=== PATIENT | male | born 1960 | race Caucasian/White ===

== ENCOUNTER 2017-03-19 09:00 | Inpatient (IN) | payer OTHER ==
[2017-03-19] VITALS (20 sets, daily range): BP systolic 117–166; BP diastolic 69–97; PULSE 63–80; RESP 16–22; Ht 172.7 cm; Wt 98.5 kg
[~2017-03-19] VITALS: Ht 172.7 cm; Wt 98.5 kg
[~2017-03-19 09:00] MED LIST: ALPR0.5T; LIDOCAINE 2% (SDV) 5 ML INJ ONE; ONDANSETRON 4 MG INJ ONE; ZOLP10TA
[2017-03-19] MEDS ORDERED: TRANEXAMIC ACID 1,000 MG in DEXTROSE 5% 100 ML IV ONE ×4 (12:00)
[2017-03-19] MEDS ORDERED: CELE100C PO (12:03)
[2017-03-19] MEDS ORDERED: ALPR2TAB PO (12:03)
[2017-03-19] MEDS ORDERED: ATOR10TA65 PO (12:03)
[2017-03-19] MEDS ORDERED: LISI10TA2 PO (12:04)
[2017-03-19] MEDS ORDERED: METF500T4 PO (12:05)
[2017-03-19] MEDS ORDERED: OXYM10TA PO (12:05)
[2017-03-19] MEDS ORDERED: ZOLP12.54 PO (12:06)
[2017-03-19] MEDS ORDERED: PANT40TA3 PO (12:06)
[2017-03-19] MEDS ORDERED: FENTANYL PATCH TRANSDERM (12:10)
[2017-03-19 13:26] LABS: INR 0.9; PROTIME 12.2 Sec (11.9-14.9)
[2017-03-19] MEDS ORDERED: ROPIVACAINE 0.2% 60 ML, CLONIDINE 100 MCG, EPINEPHrine 0.3 MG, KETOROLAC 30 MG, SOD CHL... INJ SCH ×5 (14:00)
[2017-03-19] MEDS ORDERED: MIDAZOLAM 1 MG/ML 2 ML INJ ONE (15:42)
[2017-03-19] MEDS ORDERED: BUPIVACAINE 0.5%/EPI (SDV) 30 ML INJ ONE (15:59)
[2017-03-19] MEDS ORDERED: POLYMYXIN/BACITRACIN 1L IRRIG ONE (15:59)
[2017-03-19] MEDS ORDERED: KETOROLAC 30 MG INJ ONE ×2 (15:59→18:40)
[2017-03-19] MEDS ORDERED: MEPERIDINE 25 MG INJ IV PRN (16:00)
[2017-03-19] MEDS ORDERED: MIDAZOLAM 1 MG/ML 2 ML INJ IV PRN (16:00)
[2017-03-19] MEDS ORDERED: HYDROmorphONE (0.2 MG/ML) 10ML SYG IV PRN ×2 (16:00)
[2017-03-19] MEDS ORDERED: DIPHENHYDRAMINE 50 MG INJ IV PRN (16:00)
[2017-03-19] MEDS ORDERED: LABETALOL HCL 20MG INJ IV PRN (16:00)
[2017-03-19] MEDS ORDERED: ONDANSETRON 4 MG INJ IV PRN (16:00)
[2017-03-19] MEDS ORDERED: METOCLOPRAMIDE 10 MG INJ IV PRN (16:00)
[2017-03-19] MEDS ORDERED: hydrALAzine 20 MG INJ IV PRN (16:00)
[2017-03-19] MEDS ORDERED: KETOROLAC 30 MG INJ IV PRN (16:00)
[2017-03-19] MEDS ORDERED: EPHEDrine SULFATE 50 MG/5 ML SYG IV PRN (16:00)
[2017-03-19] MEDS ORDERED: FENTAnyl 50 MCG/ML VIAL IV PRN ×3 (16:00)
--- NOTE | 2017-03-19 16:30 | HPN ---
Date/Time of Note Date/Time of Note DATE: 03/19/17 TIME: 16:30 Interval H&P Admission Note Pt. seen H&P reviewed: No system changes RUBY PATEL Mar 19, 2017 16:30
[2017-03-19] MEDS ORDERED: ROCURONIUM 50 MG INJ ONE (17:22)
[2017-03-19] MEDS ORDERED: PROPOFOL 20 ML ONE (17:22)
[2017-03-19] MEDS ORDERED: DEXAMETHASONE 4 MG/ML 1 ML INJ ONE (17:23)
--- NOTE | 2017-03-19 17:52 | RADRPT ---
PROCEDURE: Limited left knee series CLINICAL INDICATION: Pain, knee replacement TECHNIQUE: Single AP view of the left knee is submitted for review. COMPARISON: 09/02/2012 FINDINGS: Single AP view of the left knee is compared to the previous studies from 09/02/2012. There has been interval total knee arthroplasty. The prosthesis appears to be anatomically aligned and well seated. IMPRESSION: Interval total knee arthroplasty. RPTAT:AAJJ Physician Diana Date Time Electronically viewed and signed by Regis Parkinson Physician on 03/19/2017 17:52 SHAHANA/
--- NOTE | 2017-03-19 18:31 | SIPON ---
Date/Time of Note Date/Time of Note DATE: 03/19/17 TIME: 18:29 Operative Report Preoperative Diagnosis failed left UKA Postoperative Diagnosis same Operation/Procedure Performed Revision of left UKA to TKA Surgeon see signature line ophthalmic medical assistant Dr. Alonso Second assist: MARIA R FOSTER PA-C Anesthesia: spinal Estimated blood loss: 150 - 200 ml's Transfusion Required none Specimen none Grafts/Implants DePuy 2.5 femur, 3 tibia, 15 poly, 35 patella Complications none RUBY PATEL Mar 19, 2017 18:31
[2017-03-19] MEDS ORDERED: ROPIVACAINE 0.5 % 30 ML VIAL ONE (18:33)
--- NOTE | 2017-03-19 18:55 | PDOCDIS ---
Discharge Instructions DIAGNOSIS Discharge Diagnosis Status post left unicondylar knee replacement revisions to total knee replacement CONDITION Patient Condition: Good HOME CARE INSTRUCTIONS: Diet Instructions: Regular ACTIVITY: Activity Restrictions: Slowly Increase Activity Rest between Activity Avoid heavy lifting No Sexual Activity Do not Drive Do not operate Machinery Do not operate Power Tool Avoid Heavy Housework Keep Limb Elevated (May apply 2-3 pillows under the foot/ankle only while resting. Cold therapy over surgical dressing while resting.) Weight Bearing (Weight-bear as tolerated using front wheeled walker.) Bathing Restrictions: Shower (Mepilex dressing to remain on until postoperative visit. Keep the surgical area clean and dry.) FOLLOW UP/APPOINTMENTS Follow-up Plan Follow-up on postoperative appointment provided to you at your preoperative visit. MARIA R FOSTER PA-C Mar 19, 2017 18:55
[2017-03-19] MEDS ORDERED: DIPHENHYDRAMINE 50 MG INJ IM PRN (19:00)
[2017-03-19] MEDS ORDERED: DOCUSATE SODIUM 100 MG CAP PO ONE (19:00)
[2017-03-19] MEDS ORDERED: oxyCODONE 5 MG TAB PO PRN ×2 (19:00)
[2017-03-19] MEDS ORDERED: BETHANECHOL 25 MG TAB PO PRN (19:00)
[2017-03-19] MEDS ORDERED: KETOROLAC 15 MG INJ IV PRN (19:00)
[2017-03-19] MEDS ORDERED: NALOXONE (0.4 MG/ML) INJ IV PRN (19:00)
[2017-03-19] MEDS ORDERED: BISACODYL 10 MG SUPP PR PRN (19:00)
[2017-03-19] MEDS ORDERED: SENNA/DOCUSATE NA (8.6MG/50MG) TAB PO PRN (19:00)
[2017-03-19] MEDS ORDERED: NA PHOSPHATE/BIPHOS 133 ML ENEMA PR PRN (19:00)
[2017-03-19] MEDS ORDERED: ASPIRIN (EC) 325 MG TAB PO ONE (19:00)
[2017-03-19] MEDS ORDERED: ZOLPIDEM 5 MG TAB PO PRN (19:00)
[2017-03-19] MEDS: CEFAZOLIN 1 GM/50 ML (PMX) 50 ML IVPB SCH (19:00)
[2017-03-19] MEDS ORDERED: MAGNESIUM HYDROXIDE 30ML CUP PO PRN (19:00)
[2017-03-19] MEDS: HYDROmorphONE (0.2 MG/ML) 10ML SYG IV PRN ×3 (19:41→19:56)
[2017-03-19] MEDS: ONDANSETRON 4 MG INJ IV SCH (19:42)
[2017-03-19] MEDS: CELECOXIB 100 MG CAP PO SCH (22:16)
[2017-03-19] MEDS: SOD CHLORIDE 0.9% 1,000 ML IV SCH (22:16)
[2017-03-19] MEDS: GABAPENTIN 100 MG CAP PO SCH (22:20)
[2017-03-19] MEDS: morphine 4 MG/ML VIAL IV PRN (22:23)
[2017-03-19] MEDS ORDERED: GLUCOSE GEL 15 GRAM TUBE PO PRN ×2 (22:30)
[2017-03-19] MEDS ORDERED: OXYMORPHONE HCL 10 MG PO PRN (22:30)
[2017-03-19] MEDS ORDERED: GLUCOSE GEL 15 GRAM TUBE BUCCAL PRN (22:30)
[2017-03-19] MEDS ORDERED: DEXTROSE 50% 50 ML SYRINGE IV PRN ×2 (22:30)
[2017-03-19] MEDS ORDERED: FENTANYL 100 MCG TRANSDERM SCH (22:30)
[2017-03-19] MEDS ORDERED: GLUCAGON 1 MG INJ IM PRN (22:30)
[2017-03-19] MEDS ORDERED: ALPRAZOLAM 1 MG TAB PO PRN (22:30)
[2017-03-20] MEDS: ONDANSETRON 4 MG INJ IV SCH ×3 (00:26→13:00)
[2017-03-20 02:05] VITALS: BP 136/87; RESP 18
[2017-03-20] MEDS: morphine 4 MG/ML VIAL IV PRN ×2 (02:07→06:18)
[2017-03-20] MEDS: CEFAZOLIN 1 GM/50 ML (PMX) 50 ML IVPB SCH ×2 (02:21→10:56)
[2017-03-20] MEDS: ACCU-CHEK XX SCH (02:23)
[2017-03-20] MEDS: oxyCODONE 5 MG TAB PO PRN ×5 (03:45→22:50)
[2017-03-20 06:00] LABS: ADD UMIC NO; UR ASCORBIC ACID NEGATIVE (NEGATIVE); UR BILIRUBIN (Dip) NEGATIVE (NEGATIVE); UR BLOOD (Dip) NEGATIVE (NEGATIVE); UR CLARITY CLEAR (CLEAR); UR COLOR YELLOW (YELLOW); UR GLUCOSE (Dip) NEGATIVE (NEGATIVE); UR KETONES (Dip) NEGATIVE (NEGATIVE); UR LEUKOCYTE ESTERASE (Dip) NEGATIVE Leu/ul (NEGATIVE); UR NITRITE (Dip) NEGATIVE (NEGATIVE); UR SPECIFIC GRAVITY (Dip) 1.017 (1.003-1.030); UR TOTAL PROTEIN (Dip) NEGATIVE (NEGATIVE); UR UROBILINOGEN (Dip) NEGATIVE (NEGATIVE)
[2017-03-20] MEDS: INSULIN ASPART [NOVOLOG] 3 ML PEN SC SCH ×4 (07:50→21:00)
[2017-03-20 07:54] VITALS: BP 140/81; RESP 19
--- NOTE | 2017-03-20 08:08 | PN ---
Date/Time of Note Date/Time of Note DATE: 03/20/17 TIME: 08:04 Assessment/Plan VTE Prophylaxis VTE Prophylaxis Intervention: ambulation, SCD's, other (Aspirin 325 mg) Lines/Catheters IV Catheter Type (from Nrsg): Peripheral IV Chang in Place (from Nrsg): Yes Assessment/Plan Assessment/Plan -Pain Meds as needed -Dressing is clean and intact. -OOB with PT -ASA/SCDs for DVT Prophylaxis -Continue monitoring with Internal Medicine -Dilaudid 2 mg every 4 hours via IV ordered today as needed pain. -Patient Stable -Likely discharge home tomorrow. Subjective 24 Hr Interval Summary 56-year-old male postop day 1 status post left unicondylar arthroplasty with conversion to total knee arthroplasty. Patient experienced significant pain yesterday which she was provided with Dilaudid. Patient was then provided with morphine which helped. Patient is a chronic pain patient has been on chronic opiate medications such as fentanyl patch over an extended period of time. He has yet to initiate physical therapy. Currently resting comfortably but having moderate to severe pain. No calf pain, chest tightness or shortness of breath. Pain Control: moderate Exam/Review of Systems Vital Signs Vitals Vital Signs Date Time Temp Pulse Resp B/P Pulse Ox O2 Delivery O2 Flow Rate FiO2 03/20/17 07:54 98.0 89 19 140/81 97 03/19/17 22:02 Nasal Cannula 2.0 Intake and Output 03/19/17 03/19/17 03/20/17 15:00 23:00 07:00 Intake Total 200 ml 1950 ml Output Total 200 ml 1800 ml Balance 0 ml 150 ml Exam Free Text/Dictation -No complications with dressing intact. -5/5 Tibialis Anterior, EHL Gastrocnemius/Soleus and Peroneals -Normal Sensation -Palpable DP/PT, Capillary Refill <2 secs -No Distal Edema -Negative Urvashi Sign/No calf pain -Toes Freely Movable Constitutional: alert, oriented, well developed MARIA R FOSTER PA-C Mar 20, 2017 08:08
[2017-03-20] MEDS: HYDROmorphONE 2 MG/ML SYG IV PRN ×4 (08:31→20:45)
[2017-03-20] MEDS: DOCUSATE SODIUM 100 MG CAP PO SCH ×2 (08:31→20:52)
[2017-03-20] MEDS: FERROUS FUMARATE (SR) TAB PO SCH ×2 (08:32→20:52)
[2017-03-20] MEDS: ASPIRIN (EC) 325 MG TAB PO SCH (08:32)
[2017-03-20] MEDS: CELECOXIB 100 MG CAP PO SCH ×2 (08:32→20:52)
[2017-03-20] MEDS: GABAPENTIN 100 MG CAP PO SCH ×2 (08:32→20:52)
[2017-03-20] MEDS: LISINOPRIL 10 MG TAB PO SCH (08:33)
[2017-03-20 08:37] LABS: BASOPHILS % 0.2 % (0.0-2.0); HEMATOCRIT 36.7 % (42.0-52.0); HEMOGLOBIN 12.2 g/dl (14.0-18.0); LYMPHOCYTES % 5.6 % (15.0-51.0); MEAN CORPUSCULAR HEMOGLOBIN 27.4 pg (29.0-33.0); MEAN CORPUSCULAR HGB CONC 33.2 g/dl (32.0-37.0); MEAN CORPUSCULAR VOLUME 82.3 fl (82.0-101.0); MEAN PLATELET VOLUME 10.3 fl (7.4-10.4); MONOCYTE # 0.7 10^3/ul (0.3-0.9); MONOCYTES % 4.1 % (0.0-11.0); NEUTROPHIL # 15.4 10^3/ul (1.6-7.5); NEUTROPHILS % 89.6 % (39.0-77.0); PLATELET COUNT 246 10^3/UL (140-415); RED BLOOD COUNT 4.46 10^6/ul (4.70-6.10); RED CELL DISTRIBUTION WIDTH 13.2 % (11.5-14.5); WHITE BLOOD COUNT 17.2 10^3/ul (4.8-10.8)
[2017-03-20] MEDS ORDERED: PANTOPRAZOLE (EC) 40 MG TAB PO SCH (09:00)
[2017-03-20 09:10] LABS: CALCIUM 9.6 mg/dl (8.4-10.2); CREATININE 0.96 mg/dl (0.61-1.24); POTASSIUM 4.5 mmol/L (3.5-5.1)
--- NOTE | 2017-03-20 09:54 | CONS ---
Date/Time of Note Date/Time of Note DATE: 03/20/17 TIME: 09:51 Assessment/Plan Assessment/Plan Additional Assessment/Plan ASSESSMENT 56-year-old male with history of hypertension, type 2 diabetes, dyslipidemia, anxiety and chronic pain who is now status post left total knee arthroplasty. Today's postop day #1 PLAN Continue medical management Continue home medications adjustment as needed Insulin while in-house for management of diabetes Will reach out to palliative care for management of his pain. DVT prophylaxis per orthopedic Consultation Date/Type/Reason Admit Date/Time Mar 19, 2017 at 11:39 Hx of Present Illness This is a 56-year-old male with a history of hypertension, type 2 diabetes, dyslipidemia, anxiety, chronic pain syndrome who is admitted under Ortho service and had a left total knee arthroplasty. Consult was placed for medical management. Patient main concern at this point is pain management. He he takes narcotic medications chronically. His pain on the surgical site is worse with movement. Denied chest pain or shortness of breath. Social History Smoking Status: Never smoker Exam/Review of Systems Vital Signs Vitals Vital Signs Date Time Temp Pulse Resp B/P Pulse Ox O2 Delivery O2 Flow Rate FiO2 03/20/17 07:54 98.0 89 19 140/81 97 03/19/17 22:02 Nasal Cannula 2.0 Intake and Output 03/19/17 03/19/17 03/20/17 15:00 23:00 07:00 Intake Total 200 ml 1950 ml Output Total 200 ml 1800 ml Balance 0 ml 150 ml Exam Constitutional: alert, oriented Head: atraumatic, normocephalic Eyes: EOMI, PERRL Respiratory: clear to auscultation, normal air movement Cardiovascular: nl pulses, regular rate and rhythm Gastrointestinal: soft Extremities: other (Left lower extremity dressing intact) Results Result Diagram: 03/20/17 0819 03/20/17 0819 Results 24 hrs Laboratory Tests Test 03/19/17 12:10 03/19/17 12:58 03/20/17 02:10 03/20/17 04:15 Bedside Glucose 99 139 Prothrombin Time 12.2 Prothrombin Time Ratio 1.0 INR International Normalized Ratio 0.90 Activated Partial Thromboplast Time 29.0 Urine Color YELLOW Urine Clarity CLEAR Urine pH 6.0 Urine Specific [place] 1.017 Urine Ketones NEGATIVE Urine Nitrite NEGATIVE Urine Bilirubin NEGATIVE Urine Urobilinogen NEGATIVE Urine Leukocyte Esterase NEGATIVE Urine Hemoglobin NEGATIVE Urine Glucose NEGATIVE Urine Total Protein NEGATIVE Test 03/20/17 08:19 03/20/17 08:44 White Blood Count 17.2 H Red Blood Count 4.46 L Hemoglobin 12.2 L Hematocrit 36.7 L Mean Corpuscular Volume 82.3 Mean Corpuscular Hemoglobin 27.4 L Mean Corpuscular Hemoglobin Concent 33.2 Red Cell Distribution Width 13.2 Platelet Count 246 Mean Platelet Volume 10.3 Neutrophils % 89.6 H Lymphocytes % 5.6 L Monocytes % 4.1 Eosinophils % 0.0 Basophils % 0.2 Nucleated Red Blood Cells % 0.0 Neutrophils # 15.4 H Lymphocytes # 1.0 Monocytes # 0.7 Eosinophils # 0.0 Basophils # 0.0 Nucleated Red Blood Cells # 0.0 Sodium Level 143 Potassium Level 4.5 Chloride Level 107 Carbon Dioxide Level 29 Anion Gap 12 Blood Urea Nitrogen 15 Creatinine 0.96 Glucose Level 147 Calcium Level 9.6 Bedside Glucose 150 Medications Medications Current Medications Sodium Chloride (NS) 1,000 ml @ 80 mls/hr [id number] IV Last administered on 03/19 22:16; Admin Dose 80 MLS/HR; Start 03/19/17 at 18:55 Oxycodone HCl (Roxicodone) 20 mg Q3H PRN PO PAIN LEVEL 8-10 Last administered on 03/20/17 09:48; Admin Dose 20 MG; Start 03/19/17 at 19:00 Oxycodone HCl (Roxicodone) 10 mg Q3H PRN PO PAIN LEVEL 4-7; Start 03/19/17 at 19:00 Oxycodone HCl (Roxicodone) 5 mg Q3H PRN PO PAIN LEVEL 1-3; Start 03/19/17 at 19 :00 Zolpidem Tartrate (Ambien) 5 mg HS PRN PO INSOMNIA Last administered on 02:16; Admin Dose 5 MG; Start 03/19/17 at 19:00 Ondansetron HCl 4 mg 4 mg Q6H IV Last administered on 03/19/17 19:42; Admin Dose 4 MG; Start 03/19/17 at 19:00; Stop 03/20/17 at 13:01 Cefazolin Sodium (Ancef 1 Gm/50 ml (Pmx)) 50 ml @ 100 mls/hr Q8H IVPB Last administered on 03/20/17 02:21; Admin Dose 100 MLS/HR; Start 03/19/17 at 19:00 ; Stop 03/20/17 at 11:29 Aspirin (Ecotrin) 325 mg DAILY PO Last administered on 03/20/17 08:32; Admin Dose 325 MG; Start 03/20/17 at 09:00 Pantoprazole (Protonix Tab) 40 mg DAILY@06 PO ; Start 03/21/17 at 06:00 Docusate Sodium/ Ferrous Fumarate (Bertin-Sequels) 1 tab BID PO Last administered on 03/20/17 08:32; Admin Dose 1 TAB; Start 03/20/17 at 09:00 Docusate Sodium (Colace) 200 mg BID PO Last administered on 03/20/17 08:31; Admin Dose 200 MG; Start 03/20/17 at 09:00; Stop 03/23/17 at 08:59 Simethicone (Mylicon) 80 mg TID PRN PO DISTENSION/GAS/BLOATING; Start 03/19/17 at 19:00 Senna/Docusate Sodium (Senokot-S) 2 tab BID PRN PO CONSTIPATION; Start at 19:00 Magnesium Hydroxide (Milk Of Mag) 30 ml HS PRN PO CONSTIPATION; Start 03/19/17 at 19:00 Bisacodyl (Dulcolax Supp) 10 mg DAILY PRN [place] CONSTIPATION; Start 03/19/17 at 19 :00 Sodium Biphosphate/ Sodium Phosphate (Fleet Enema) 133 ml DAILY PRN [place] CONSTIPATION; Start 03/19/17 at 19:00 Diphenhydramine HCl (Benadryl) 25 mg Q4H PRN IM ITCHING OR RASH Last administered on 03/19/17 19:42; Admin Dose 25 MG; Start 03/19/17 at 19:00 Naloxone HCl (Narcan) 0.2 mg Q2M PRN IV DECREASED REPIRATORY RATE; Start at 19:00 Celecoxib (Celebrex) 100 mg BID PO Last administered on 03/20/17 08:32; Admin Dose 100 MG; Start 03/19/17 at 21:00 Ketorolac Tromethamine (Toradol) 15 mg Q6H PRN IV PAIN Last administered on 22:16; Admin Dose 15 MG; Start 03/19/17 at 19:00; Stop 03/22/17 at 18:59 Gabapentin (Neurontin) 100 mg BID PO Last administered on 03/20/17 08:32; Admin Dose 100 MG; Start 03/19/17 at 21:00 Alprazolam (Xanax) 2 mg DAILY PRN PO ANXIETY Last administered on 03/19/17 22: 23; Admin Dose 2 MG; Start 03/19/17 at 22:30 Atorvastatin Calcium (Lipitor) 10 mg QHS PO ; Start 03/20/17 at 21:00 Lisinopril (Zestril) 10 mg DAILY PO Last administered on 03/20/17 08:33; Admin Dose 10 MG; Start 03/20/17 at 09:00 Miscellaneous Information 10 mg Q4 PRN PO PAIN; Start 03/19/17 at 22:30; Status UNV Morphine Sulfate (morphine) 4 mg Q3H PRN IV pain Last administered on 06:18; Admin Dose 4 MG; Start 03/19/17 at 22:30 Miscellaneous Information 12.5 mg HS PRN PO INSOMNIA; Start 03/19/17 at 22:30; Status UNV Diagnostic Test (Pha) (Accu-Chek) 1 ea 02 XX Last administered on 03/20/17 02: 23; Admin Dose 1 EA; Start 03/20/17 at 02:00 Miscellaneous Information 1 ea NOTE XX ; Start 03/19/17 at 22:30 Glucose (Glutose) 15 gm Q15M PRN PO DECREASED GLUCOSE; Start 03/19/17 at 22:30 Glucose (Glutose) 22.5 gm Q15M PRN PO DECREASED GLUCOSE; Start 03/19/17 at 22: 30 Dextrose (D50w Syringe) 25 ml Q15M PRN IV DECREASED GLUCOSE; Start 03/19/17 at 22:30 Dextrose (D50w Syringe) 50 ml Q15M PRN IV DECREASED GLUCOSE; Start 03/19/17 at 22:30 Glucagon (Glucagen) 1 mg Q15M PRN IM DECREASED GLUCOSE; Start 03/19/17 at 22:30 Glucose (Glutose) 15 gm Q15M PRN BUCCAL DECREASED GLUCOSE; Start 03/19/17 at 22 :30 Hydromorphone HCl (Dilaudid) 2 mg Q4H PRN IV PAIN Last administered on t 08:31; Admin Dose 2 MG; Start 03/20/17 at 08:30 Fentanyl (Duragesic 100 Mcg/Hr Patch) 1 patch Q48H TRANSDERM ; Start 03/20/17 at 09:00; Status UNV DIMAS FIERRO MD Mar 20, 2017 09:54
[2017-03-20] MEDS: metFORMIN 500 MG TAB PO SCH ×2 (10:56→18:04)
[2017-03-20] MEDS: SOD CHLORIDE 0.9% 1,000 ML IV SCH ×3 (10:56→23:51)
[2017-03-20 12:26] LABS: CHOL/HDL RATIO 3.7 RATIO
--- NOTE | 2017-03-20 12:41 | PN ---
Date/Time of Note Date/Time of Note DATE: 03/20/17 TIME: 12:36 Assessment/Plan VTE Prophylaxis VTE Prophylaxis Intervention: other (per surgeon) Lines/Catheters IV Catheter Type (from Nrsg): Peripheral IV Urinary Cath still in place: Yes Assessment/Plan Chief Complaint/Hosp Course Assessment and plan 1. 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 Continue analgesics. Physical therapy per surgeon. 2. Chronic pain syndrome. Patient does still report having chronic pain despite being on fentanyl patch as well as oxycodone and Dilaudid as needed. Will get pain management physician to follow. 3. Diabetes. Continue insulin regimen. 3. Dyslipidemia. Continue on statin Disposition and plan: Continue with analgesics. Will get pain management physician to follow. Discussed plan of care with Dr. Coleman Problems: Subjective 24 Hr Interval Summary Free Text/Dictation reports having pain on left knee. is requesting for more pain medication despite being on fentanyl patch and using dilaudid/oxycodone prn Exam/Review of Systems Vital Signs Vitals Vital Signs Date Time Temp Pulse Resp B/P Pulse Ox O2 Delivery O2 Flow Rate FiO2 03/20/17 07:54 98.0 89 19 140/81 97 03/19/17 22:02 Nasal Cannula 2.0 Intake and Output 03/19/17 03/19/17 03/20/17 15:00 23:00 07:00 Intake Total 200 ml 1950 ml Output Total 200 ml 1800 ml Balance 0 ml 150 ml Exam Constitutional: alert, oriented Psych: nl mood/affect Head: normocephalic Neck: non-tender, supple Respiratory: normal air movement Cardiovascular: regular rate and rhythm Gastrointestinal: non-tender, soft Musculoskeletal: other (s/p left knee surgery, dressing cdi ), swelling 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, nl mental status, nl speech Results Result Diagram: 03/20/1719 03/20/17818 Results 24 hrs Laboratory Tests Test 03/19/17 12:58 03/20/17 02:10 03/20/17 04:15 03/20/17 08:19 Prothrombin Time 12.2 Prothrombin Time Ratio 1.0 INR International Normalized Ratio 0.90 Activated Partial Thromboplast Time 29.0 Bedside Glucose 139 Urine Color YELLOW Urine Clarity CLEAR Urine pH 6.0 Urine Specific [place] 1.017 Urine Ketones NEGATIVE Urine Nitrite NEGATIVE Urine Bilirubin NEGATIVE Urine Urobilinogen NEGATIVE Urine Leukocyte Esterase NEGATIVE Urine Hemoglobin NEGATIVE Urine Glucose NEGATIVE Urine Total Protein NEGATIVE White Blood Count 17.2 H Red Blood Count 4.46 L Hemoglobin 12.2 L Hematocrit 36.7 L Mean Corpuscular Volume 82.3 Mean Corpuscular Hemoglobin 27.4 L Mean Corpuscular Hemoglobin Concent 33.2 Red Cell Distribution Width 13.2 Platelet Count 246 Mean Platelet Volume 10.3 Neutrophils % 89.6 H Lymphocytes % 5.6 L Monocytes % 4.1 Eosinophils % 0.0 Basophils % 0.2 Nucleated Red Blood Cells % 0.0 Neutrophils # 15.4 H Lymphocytes # 1.0 Monocytes # 0.7 Eosinophils # 0.0 Basophils # 0.0 Nucleated Red Blood Cells # 0.0 Sodium Level 143 Potassium Level 4.5 Chloride Level 107 Carbon Dioxide Level 29 Anion Gap 12 Blood Urea Nitrogen 15 Creatinine 0.96 Glucose Level 147 Calcium Level 9.6 Triglycerides Level 98 Cholesterol Level 134 LDL Cholesterol, Calculated 78 HDL Cholesterol 36 Cholesterol/HDL Ratio 3.7 Test 03/20/17 08:44 Bedside Glucose 150 Medications Medications Current Medications Sodium Chloride (NS) 1,000 ml @ 80 mls/hr [id number] IV Last administered on 03/20 10:56; Admin Dose 80 MLS/HR; Start 03/19/17 at 18:55 Oxycodone HCl (Roxicodone) 20 mg Q3H PRN PO PAIN LEVEL 8-10 Last administered on 03/20/17 09:48; Admin Dose 20 MG; Start 03/19/17 at 19:00 Oxycodone HCl (Roxicodone) 10 mg Q3H PRN PO PAIN LEVEL 4-7; Start 03/19/17 at 19:00 Oxycodone HCl (Roxicodone) 5 mg Q3H PRN PO PAIN LEVEL 1-3; Start 03/19/17 at 19 :00 Zolpidem Tartrate (Ambien) 5 mg HS PRN PO INSOMNIA Last administered on 02:16; Admin Dose 5 MG; Start 03/19/17 at 19:00 Ondansetron HCl (Zofran Inj) 4 mg Q6H IV Last administered on 03/19/17 19:42; Admin Dose 4 MG; Start 03/19/17 at 19:00; Stop 03/20/17 at 13:01 Aspirin (Ecotrin) 325 mg DAILY PO Last administered on 03/20/17 08:32; Admin Dose 325 MG; Start 03/20/17 at 09:00 Pantoprazole (Protonix Tab) 40 mg DAILY@06 PO ; Start 03/21/17 at 06:00 Docusate Sodium/ Ferrous Fumarate (Bertin-Sequels) 1 tab BID PO Last administered on 03/20/17 08:32; Admin Dose 1 TAB; Start 03/20/17 at 09:00 Docusate Sodium (Colace) 200 mg BID PO Last administered on 03/20/17 08:31; Admin Dose 200 MG; Start 03/20/17 at 09:00; Stop 03/23/17 at 08:59 Simethicone (Mylicon) 80 mg TID PRN PO DISTENSION/GAS/BLOATING; Start 03/19/17 at 19:00 Senna/Docusate Sodium (Senokot-S) 2 tab BID PRN PO CONSTIPATION; Start at 19:00 Magnesium Hydroxide (Milk Of Mag) 30 ml HS PRN PO CONSTIPATION; Start 03/19/17 at 19:00 Bisacodyl (Dulcolax Supp) 10 mg DAILY PRN [place] CONSTIPATION; Start 03/19/17 at 19 :00 Sodium Biphosphate/ Sodium Phosphate (Fleet Enema) 133 ml DAILY PRN [place] CONSTIPATION; Start 03/19/17 at 19:00 Diphenhydramine HCl (Benadryl) 25 mg Q4H PRN IM ITCHING OR RASH Last administered on 03/19/17 19:42; Admin Dose 25 MG; Start 03/19/17 at 19:00 Naloxone HCl (Narcan) 0.2 mg Q2M PRN IV DECREASED REPIRATORY RATE; Start at 19:00 Celecoxib (Celebrex) 100 mg BID PO Last administered on 03/20/17 08:32; Admin Dose 100 MG; Start 03/19/17 at 21:00 Ketorolac Tromethamine (Toradol) 15 mg Q6H PRN IV PAIN Last administered on 22:16; Admin Dose 15 MG; Start 03/19/17 at 19:00; Stop 03/22/17 at 18:59 Gabapentin (Neurontin) 100 mg BID PO Last administered on 03/20/17 08:32; Admin Dose 100 MG; Start 03/19/17 at 21:00 Alprazolam (Xanax) 2 mg DAILY PRN PO ANXIETY Last administered on 03/19/17 22: 23; Admin Dose 2 MG; Start 03/19/17 at 22:30 Atorvastatin Calcium (Lipitor) 10 mg QHS PO ; Start 03/20/17 at 21:00 Lisinopril (Zestril) 10 mg DAILY PO Last administered on 03/20/17 08:33; Admin Dose 10 MG; Start 03/20/17 at 09:00 Miscellaneous Information 10 mg Q4 PRN PO PAIN; Start 03/19/17 at 22:30; Status UNV Morphine Sulfate (morphine) 4 mg Q3H PRN IV pain Last administered on 06:18; Admin Dose 4 MG; Start 03/19/17 at 22:30 Miscellaneous Information 12.5 mg HS PRN PO INSOMNIA; Start 03/19/17 at 22:30; Status UNV Diagnostic Test (Pha) (Accu-Chek) 1 ea 02 XX Last administered on 03/20/17 02: 23; Admin Dose 1 EA; Start 03/20/17 at 02:00 Miscellaneous Information 1 ea NOTE XX ; Start 03/19/17 at 22:30 Glucose (Glutose) 15 gm Q15M PRN PO DECREASED GLUCOSE; Start 03/19/17 at 22:30 Glucose (Glutose) 22.5 gm Q15M PRN PO DECREASED GLUCOSE; Start 03/19/17 at 22: 30 Dextrose (D50w Syringe) 25 ml Q15M PRN IV DECREASED GLUCOSE; Start 03/19/17 at 22:30 Dextrose (D50w Syringe) 50 ml Q15M PRN IV DECREASED GLUCOSE; Start 03/19/17 at 22:30 Glucagon (Glucagen) 1 mg Q15M PRN IM DECREASED GLUCOSE; Start 03/19/17 at 22:30 Glucose (Glutose) 15 gm Q15M PRN BUCCAL DECREASED GLUCOSE; Start 03/19/17 at 22 :30 Hydromorphone HCl (Dilaudid) 2 mg Q4H PRN IV PAIN Last administered on 08:31; Admin Dose 2 MG; Start 03/20/17 at 08:30 Fentanyl (Duragesic 100 Mcg/Hr Patch) 1 patch Q48H TRANSDERM Last administered on 03/20/17t 11:02; Admin Dose 1 PATCH; Start 03/20/17 at 11:00 DEE DEE GILL Mar 20, 2017 12:41
[2017-03-20 15:46] VITALS: BP 131/61; RESP 19
[2017-03-20] MEDS ORDERED: ALPRAZOLAM 0.5 MG TAB PO PRN (18:00)
[2017-03-20 19:42] VITALS: BP 131/62; RESP 20
[2017-03-20] MEDS ORDERED: ATORVASTATIN 10 MG TAB PO SCH (21:00)
[2017-03-20] MEDS ORDERED: ZOLPIDEM 5 MG TAB PO PRN (21:00)
[2017-03-21] MEDS: HYDROmorphONE 2 MG/ML SYG IV PRN ×3 (00:54→11:01)
[2017-03-21] MEDS: ACCU-CHEK XX SCH (02:00)
[2017-03-21 02:18] VITALS: BP 122/76; RESP 18
[2017-03-21] MEDS: oxyCODONE 5 MG TAB PO PRN ×3 (03:33→13:09)
[2017-03-21 05:51] LABS: BASOPHILS % 0.4 % (0.0-2.0); EOSINOPHILS # 0.3 10^3/ul (0.0-0.5); EOSINOPHILS % 2.8 % (0.0-7.0); HEMATOCRIT 32.5 % (42.0-52.0); HEMOGLOBIN 10.5 g/dl (14.0-18.0); LYMPHOCYTES # 1.5 10^3/ul (0.8-2.9); LYMPHOCYTES % 16.1 % (15.0-51.0); MEAN CORPUSCULAR HEMOGLOBIN 26.9 pg (29.0-33.0); MEAN CORPUSCULAR HGB CONC 32.3 g/dl (32.0-37.0); MEAN CORPUSCULAR VOLUME 83.3 fl (82.0-101.0); MEAN PLATELET VOLUME 11.1 fl (7.4-10.4); MONOCYTE # 0.7 10^3/ul (0.3-0.9); MONOCYTES % 7.8 % (0.0-11.0); NEUTROPHIL # 6.7 10^3/ul (1.6-7.5); NEUTROPHILS % 72.6 % (39.0-77.0); PLATELET COUNT 196 10^3/UL (140-415); RED CELL DISTRIBUTION WIDTH 14.1 % (11.5-14.5); WHITE BLOOD COUNT 9.3 10^3/ul (4.8-10.8)
[2017-03-21] MEDS ORDERED: PANTOPRAZOLE (EC) 40 MG TAB PO SCH (06:00)
[2017-03-21 06:23] LABS: CALCIUM 8.5 mg/dl (8.4-10.2); CREATININE 1.08 mg/dl (0.61-1.24); POTASSIUM 4.9 mmol/L (3.5-5.1)
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
[2017-03-21 08:00] VITALS: BP 139/87; RESP 18
[2017-03-21] MEDS: SOD CHLORIDE 0.9% 1,000 ML IV SCH (08:25)
--- NOTE | 2017-03-21 08:39 | PN ---
Date/Time of Note Date/Time of Note DATE: 03/21/17 TIME: 08:35 Assessment/Plan VTE Prophylaxis VTE Prophylaxis Intervention: ambulation, SCD's, other (Aspirin 325 mg) Lines/Catheters IV Catheter Type (from Nrsg): Peripheral IV Chang in Place (from Nrsg): No Assessment/Plan Assessment/Plan -Pain Meds as needed -ASA for DVT Prophylaxis x 4 weeks outpatient discussed. -Continue monitoring as outpatient on discharge -Follow-up at scheduled postop outpatient appointment or sooner if there is any issue. -Oxycodone 20 mg 1 tab p.o. every 4 hours as needed pain #90 provided today only for severe postoperative pain while at home. -Patient Stable -Discharge to Home with home health Subjective 24 Hr Interval Summary 56-year-old man postop day 2 status post left unicondylar knee arthroplasty conversion to total knee arthroplasty. Patient states that pain is been well controlled with oxycodone, fentanyl patch, and Dilaudid. History of chronic pain. Resting comfortably in bed today. Denies any chest pain/tightness or shortness of breath. Patient has initiated physical therapy. Plan is to discharge home today. Pain Control: well controlled Exam/Review of Systems Vital Signs Vitals Vital Signs Date Time Temp Pulse Resp B/P Pulse Ox O2 Delivery O2 Flow Rate FiO2 03/21/17 08:00 98.1 75 18 139/87 96 03/19/17 22:02 Nasal Cannula 2.0 Intake and Output 03/20/17 03/20/17 03/21/17 15:00 23:00 07:00 Intake Total 550 ml 1620 ml 1500 ml Output Total 620 ml 850 ml Balance 550 ml 1000 ml 650 ml Exam Free Text/Dictation -No complications with dressing intact. -5/5 Tibialis Anterior, EHL Gastrocnemius/Soleus and Peroneals -Normal Sensation -Palpable DP/PT, Capillary Refill <2 secs -No Distal Edema -Negative Urvashi Sign/No calf pain -Toes Freely Movable Constitutional: alert, oriented, well developed Results Result Diagram: 03/21/17 0453 03/21/17 0453 MARIA R FOSTER PA-C Mar 21, 2017 08:39
[2017-03-21] MEDS: CELECOXIB 100 MG CAP PO SCH (08:49)
[2017-03-21] MEDS: DOCUSATE SODIUM 100 MG CAP PO SCH (08:49)
[2017-03-21] MEDS: GABAPENTIN 100 MG CAP PO SCH (08:49)
[2017-03-21] MEDS: LISINOPRIL 10 MG TAB PO SCH (08:50)
[2017-03-21] MEDS: metFORMIN 500 MG TAB PO SCH (08:50)
[2017-03-21] MEDS: FERROUS FUMARATE (SR) TAB PO SCH (08:50)
[2017-03-21] MEDS: INSULIN ASPART [NOVOLOG] 3 ML PEN SC SCH ×2 (08:51→12:30)
[2017-03-21] MEDS ORDERED: ALPRAZOLAM 1 MG TAB PO PRN (09:00)
[2017-03-21] MEDS: ASPIRIN (EC) 325 MG TAB PO SCH (10:24)
--- NOTE | 2017-03-21 10:56 | PN ---
Date/Time of Note Date/Time of Note DATE: 03/21/17 TIME: 10:54 Assessment/Plan VTE Prophylaxis VTE Prophylaxis Intervention: other (per surgeon) Lines/Catheters IV Catheter Type (from Nrsg): Peripheral IV Urinary Cath still in place: No Assessment/Plan Chief Complaint/Hosp Course Assessment and plan 1. 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 Continue analgesics. Physical therapy per surgeon. 2. Chronic pain syndrome. Patient does still report having chronic pain despite being on fentanyl patch as well as oxycodone and Dilaudid as needed. Will get pain management physician to follow. 3. Diabetes. Continue insulin regimen. 3. Dyslipidemia. Continue on statin Disposition and plan: continue with analgesics. continue with physical therapy. dc planning Discussed plan of care with Dr. Coleman Problems: Subjective 24 Hr Interval Summary Free Text/Dictation still with some pain on left knee. unchanged. Exam/Review of Systems Vital Signs Vitals Vital Signs Date Time Temp Pulse Resp B/P Pulse Ox O2 Delivery O2 Flow Rate FiO2 03/21/17 08:00 98.1 75 18 139/87 96 03/19/17 22:02 Nasal Cannula 2.0 Intake and Output 03/20/17 03/20/17 03/21/17 15:00 23:00 07:00 Intake Total 550 ml 1620 ml 1500 ml Output Total 620 ml 850 ml Balance 550 ml 1000 ml 650 ml Exam Constitutional: alert, oriented Psych: nl mood/affect Head: normocephalic Neck: non-tender, supple Respiratory: normal air movement Cardiovascular: regular rate and rhythm Gastrointestinal: non-tender, soft Musculoskeletal: other (s/p left knee surgery cdi ), swelling Neurological: [employer]PUT[employer] OPER[employer] II-XII intact, nl mental status, nl speech Results Result Diagram: 03/21/17 0453 03/21/17 0453 Results 24 hrs Laboratory Tests Test 03/20/17 12:48 03/20/17 17:39 03/20/17 20:51 03/21/17 04:53 Bedside Glucose 100 101 129 White Blood Count 9.3 # Red Blood Count 3.90 L Hemoglobin 10.5 L Hematocrit 32.5 L Mean Corpuscular Volume 83.3 Mean Corpuscular Hemoglobin 26.9 L Mean Corpuscular Hemoglobin Concent 32.3 Red Cell Distribution Width 14.1 Platelet Count 196 # Mean Platelet Volume 11.1 H Neutrophils % 72.6 Lymphocytes % 16.1 Monocytes % 7.8 Eosinophils % 2.8 Basophils % 0.4 Nucleated Red Blood Cells % 0.0 Neutrophils # 6.7 Lymphocytes # 1.5 Monocytes # 0.7 Eosinophils # 0.3 Basophils # 0.0 Nucleated Red Blood Cells # 0.0 Sodium Level 144 Potassium Level 4.9 Chloride Level 110 Carbon Dioxide Level 27 Anion Gap 12 Blood Urea Nitrogen 15 Creatinine 1.08 Glucose Level 105 # Calcium Level 8.5 Test 03/21/17 08:37 Bedside Glucose 116 Medications Medications Current Medications Sodium Chloride (NS) 1,000 ml @ 80 mls/hr [id number] IV Last administered on 03/20 23:51; Admin Dose 80 MLS/HR; Start 03/19/17 at 18:55 Oxycodone HCl (Roxicodone) 20 mg Q3H PRN PO PAIN LEVEL 8-10 Last administered on 03/21/17 08:39; Admin Dose 20 MG; Start 03/19/17 at 19:00 Oxycodone HCl (Roxicodone) 10 mg Q3H PRN PO PAIN LEVEL 4-7; Start 03/19/17 at 19:00 Oxycodone HCl (Roxicodone) 5 mg Q3H PRN PO PAIN LEVEL 1-3; Start 03/19/17 at 19 :00 Aspirin (Ecotrin) 325 mg DAILY PO Last administered on 03/21/17 10:24; Admin Dose 325 MG; Start 03/20/17 at 09:00 Pantoprazole (Protonix Tab) 40 mg DAILY@06 PO Last administered on 03/21/17 06 :10; Admin Dose 40 MG; Start 03/21/17 at 06:00 Docusate Sodium/ Ferrous Fumarate (Bertin-Sequels) 1 tab BID PO Last administered on 03/21/17 08:50; Admin Dose 1 TAB; Start 03/20/17 at 09:00 Docusate Sodium (Colace) 200 mg BID PO Last administered on 03/21/17 08:49; Admin Dose 200 MG; Start 03/20/17 at 09:00; Stop 03/23/17 at 08:59 Simethicone (Mylicon) 80 mg TID PRN PO DISTENSION/GAS/BLOATING; Start 03/19/17 at 19:00 Senna/Docusate Sodium (Senokot-S) 2 tab BID PRN PO CONSTIPATION; Start at 19:00 Magnesium Hydroxide (Milk Of Mag) 30 ml HS PRN PO CONSTIPATION; Start 03/19/17 at 19:00 Bisacodyl (Dulcolax Supp) 10 mg DAILY PRN [place] CONSTIPATION; Start 03/19/17 at 19 :00 Sodium Biphosphate/ Sodium Phosphate (Fleet Enema) 133 ml DAILY PRN [place] CONSTIPATION; Start 03/19/17 at 19:00 Diphenhydramine HCl (Benadryl) 25 mg Q4H PRN IM ITCHING OR RASH Last administered on 03/19/17 19:42; Admin Dose 25 MG; Start 03/19/17 at 19:00 Naloxone HCl (Narcan) 0.2 mg Q2M PRN IV DECREASED REPIRATORY RATE; Start at 19:00 Celecoxib (Celebrex) 100 mg BID PO Last administered on 03/21/17 08:49; Admin Dose 100 MG; Start 03/19/17 at 21:00 Ketorolac Tromethamine (Toradol) 15 mg Q6H PRN IV PAIN Last administered on 22:16; Admin Dose 15 MG; Start 03/19/17 at 19:00; Stop 03/22/17 at 18:59 Gabapentin (Neurontin) 100 mg BID PO Last administered on 03/21/17 08:49; Admin Dose 100 MG; Start 03/19/17 at 21:00 Atorvastatin Calcium (Lipitor) 10 mg QHS PO Last administered on 03/20/17 20: 52; Admin Dose 10 MG; Start 03/20/17 at 21:00 Lisinopril (Zestril) 10 mg DAILY PO Last administered on 03/21/17 08:50; Admin Dose 10 MG; Start 03/20/17 at 09:00 Miscellaneous Information 10 mg Q4 PRN PO PAIN; Start 03/19/17 at 22:30; Status UNV Zolpidem Tartrate (Ambien) 5 mg HS PRN PO INSOMNIA Last administered on 23:05; Admin Dose 5 MG; Start 03/20/17 at 21:00 Diagnostic Test (Pha) (Accu-Chek) 1 ea 02 XX Last administered on 03/20/17 02: 23; Admin Dose 1 EA; Start 03/20/17 at 02:00 Miscellaneous Information 1 ea NOTE XX ; Start 03/19/17 at 22:30 Glucose (Glutose) 15 gm Q15M PRN PO DECREASED GLUCOSE; Start 03/19/17 at 22:30 Glucose (Glutose) 22.5 gm Q15M PRN PO DECREASED GLUCOSE; Start 03/19/17 at 22: 30 Dextrose (D50w Syringe) 25 ml Q15M PRN IV DECREASED GLUCOSE; Start 03/19/17 at 22:30 Dextrose (D50w Syringe) 50 ml Q15M PRN IV DECREASED GLUCOSE; Start 03/19/17 at 22:30 Glucagon (Glucagen) 1 mg Q15M PRN IM DECREASED GLUCOSE; Start 03/19/17 at 22:30 Glucose (Glutose) 15 gm Q15M PRN BUCCAL DECREASED GLUCOSE; Start 03/19/17 at 22 :30 Hydromorphone HCl (Dilaudid) 2 mg Q4H PRN IV PAIN Last administered on 06:10; Admin Dose 2 MG; Start 03/20/17 at 08:30 Fentanyl (Duragesic 100 Mcg/Hr Patch) 1 patch Q48H TRANSDERM Last administered on 03/20/17 11:02; Admin Dose 1 PATCH; Start 03/20/17 at 11:00 Alprazolam (Xanax) 1 mg Q12H PRN PO ANXIETY; Start 03/21/17 at 09:00 DEE DEE GILL Mar 21, 2017 10:56
--- NOTE | 2017-03-22 08:06 | DS ---
Date/Time of Note Date/Time of Note DATE: 03/22/17 TIME: 08:05 Discharge Summary Admission/Discharge Info Admit Date/Time Mar 19, 2017 at 11:39 Discharge Date/Time Mar 21, 2017 at 14:52 Discharge Diagnosis Status post left unicondylar knee replacement revisions to total knee replacement Patient Condition: Good Hospital Course On the day of admission, the patient underwent unicondylar knee replacement conversion to total knee replacement Intraoperative complications: None Postoperative complications: None The patient was given prophylactic antibiotics and anticoagulants. On the day of surgery and first postoperative day patient was started on gait training and was taught usual restrictions following knee replacement On postoperative day 1 dressing was clean dry and intact. No complications were observed. On the day of discharge, the wound was clean and healing well; there was no sign of infection. Wound care instructions were discussed with the patient. Discharge Temperature: 98.1 Discharge White Blood Cell Count: 9.3 Discharge Hemoglobin: 10.1 The patient was discharged home with home health. Arrangements were made for visiting nurses and home health/physical therapy. The patient will be seen in office at scheduled postoperative evaluation date given on their preoperative exam. Should patient complain of any problems prior to scheduled postoperative evaluation date, they may call into outpatient clinic to determine if they need to be scheduled at sooner appointment to be seen immediately if needed. Discharge medications: As per medication reconciliation form Diet: Same as preadmission diet. This is Maria R Tang PA-C dictating discharge summary for Dr. Leblanc. Home Meds Reported Medications [Fentanyl Patch] No Conflict Check, 100 MCG TRANSDERM EVERY 48 HOURS 03/19/17 Zolpidem Tartrate* (Zolpidem Tartrate* ER) 12.5 Mg Tab.mphase, 12.5 MG PO HS Y for INSOMNIA, #30 TAB.SA 03/19/17 Pantoprazole* (Protonix*) 40 Mg Tablet.dr, 40 MG PO DAILY, TAB 03/19/17 Oxymorphone Hcl (Opana) 10 Mg Tablet, 10 MG PO Q4 Y for PAIN, TAB 03/19/17 Metformin Hcl* (Metformin Hcl*) 500 Mg Tablet, 500 MG PO WITH BREAKFAST DINNE, # 30 TAB 03/19/17 Lisinopril* (Lisinopril*) 10 Mg Tablet, 10 MG PO DAILY, #30 TAB 03/19/17 Celecoxib* (Celebrex*) 100 Mg Capsule, 100 MG PO BID, CAP 03/19/17 Atorvastatin Calcium (Atorvastatin Calcium) 10 Mg Tablet, 10 MG PO QHS, #30 TAB 03/19/17 Alprazolam* (Xanax*) 2 Mg Tablet, 2 MG PO DAILY Y for ANXIETY, TAB 03/19/17 Discontinued Reported Medications Alprazolam* (Xanax*) 0.5 Mg Tab 01/20/10 Zolpidem Tartrate* (Ambien*) 10 Mg Tablet 01/20/10 Follow-up Plan Follow-up on postoperative appointment provided to you at your preoperative visit. Primary Care Provider Brandee Garcia MD Pending Labs Laboratory Tests Test 03/21/17 08:37 03/21/17 12:39 03/22/17 07:53 Bedside Glucose 116mg/dL (70-220) 111mg/dL (70-220) Lab Scanned Report REFERENCE [id number] MARIA R FOSTER PA-C Mar 22, 2017 08:06
== END 2017-03-21 14:52 | disposition home health service (06) | DRG 468 ==
LOC: REC 11:39 → MS1 21:10
PROVIDERS: ADMIT Orthopaedic Surgery; ATTEND Orthopaedic Surgery
PROC: 0SRD0J9 Replacement of Left Knee Joint with Synthetic Substitute, Cemented, Open Approach (ICD-10-PCS; 2017-03-19)
PROC: 0SPD0JZ Removal of Synthetic Substitute from Left Knee Joint, Open Approach (ICD-10-PCS; principal; 2017-03-19 14:00)
DX: T84.033A Mechanical loosening of internal left knee prosthetic joint, initial encounter (principal); I10 Essential (primary) hypertension; E11.9 Type 2 diabetes mellitus without complications; E78.5 Hyperlipidemia, unspecified; F41.9 Anxiety disorder, unspecified; G89.4 Chronic pain syndrome; Z96.652 Presence of left artificial knee joint
CPT/HCPCS: 73560; 80048; 80061; 81003; 82962; 83036; 85025; 85610; 85730; 86850; 86900; 86901; 87081; 87086; 88300; 97110; 97116; 97163; 97165; 97535; C1713; J0171; J0690; J0735; J1100; J1170; J1200; J1815; J1885; J2175; J2250; J2270; J2405; J2765; J2795; J3010; J7030